=== PATIENT | male | born 2000 | race Caucasian/White ===

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

== ENCOUNTER 2018-08-06 13:10 | Emergency (ER) | payer BC ==
[~2018-08-06] VITALS: Ht 170.2 cm; Wt 78.2 kg
[2018-08-06 13:14] VITALS: BP 124/65; PULSE 109; RESP 20; Ht 170.2 cm; Wt 78.2 kg
--- NOTE | 2018-08-06 13:30 | ERD ---
ER Documentation Chief Complaint Chief Complaint c/o cough and on and off fever x2 weeks HPI 18-year-old male, presents to the emergency department, complaining of intermittent episodes of dry cough for 2 weeks. The patient denies fevers, no chills, no shortness of breath, no chest pain. ROS All systems reviewed and are negative except as per history of present illness. Allergies Allergies: Coded Allergies: erythromycin base (Verified Allergy, Unknown, 08/06/18) sulfisoxazole (Verified Allergy, Unknown, 08/06/18) PMhx/Soc Medical and Surgical Hx: pt denies Medical Hx, pt denies Surgical Hx Hx Alcohol Use: No Hx Substance Use: No Hx Tobacco Use: No FmHx Family History: No diabetes, No coronary disease Physical Exam Vitals Vital Signs Date Temp Pulse Resp B/P (MAP) Pulse Ox O2 O2 Flow FiO2 Time Delivery Rate 08/06/18 102 20 99 21 14:34 08/06/18 98.8 109 20 124/65 99 13:14 (84) Physical Exam Const: No acute distress Head: Atraumatic Eyes: Normal Conjunctiva ENT: Normal External Ears, Nose and Mouth. Neck: Full range of motion. No meningismus. Resp: Clear to auscultation bilaterally Cardio: Regular rate and rhythm, no murmurs Abd: Soft, non tender, non distended. Normal bowel sounds Skin: No petechiae or rashes Back: No midline or flank tenderness Ext: No cyanosis, or edema Neur: Awake and alert Psych: Normal Mood and Affect Results 24 hrs Current Medications Medications Dose Sig/Chuy Start Time Status Last (Trade) Ordered Route PRN Stop Time Admin Dose Reason Admin Albuterol 5 mg ONCE STAT 08/06/18 DC 08/06/18 (Proventil HHN 13:34 08/06/18 14:29 0.083% (Neb)) 13:48 Ipratropium 0.5 mg ONCE ONCE 08/06/18 DC 08/06/18 [place] [facility] 14:00 08/06/18 14:29 (Atrovent 14:01 0.02% (Neb)) Patient: JOSHUA SANTAMARIA : 2000 Age: 18 Sex: M MR #: [id number] DOS: 08/06/18 1332 Ordering MD: PANKAJ WILL MD Location: [facility] Room/Bed: PROCEDURE: XR Chest. CLINICAL INDICATION: Cough 3-week TECHNIQUE: AP and Lateral views of the chest were obtained. COMPARISON: None. FINDINGS: Normal lung volumes. Hemidiaphragm sharply defined. The lungs are clear. No signs of focal air space disease, pleural fluid or pneumothorax identified. The cardiomediastinal silhouette is within normal limits. Osseous thorax is intact. The overlying soft tissues are unremarkable. IMPRESSION: Normal PA and lateral views of the chest. Procedures/MDM Differential diagnosis include but not limited to: Respiratory infection bacterial/viral/fungal. Asthma, COPD, pneumonitis, allergies, GERD. Less cardiac related, aspiration pneumonia, malignancy. Physical examination and clinical presentation consistent most likely with post viral cough. During the ED course the patient remained stable, no new complaints. Treatment options and clinical impression discussed with patient who agrees with management. The patient is stable to be treated outpatient and will be discharged home with a Rx for cough medication and loratadine. Some side effects of prescribed medications (headache, rash, nausea, vomiting, diarrhea, interactions with other medications) were reviewed. The patient was informed that the evaluation in the emergency department has been done to rule out an acute emergency, therefore, chronic conditions like malignancy or other diseases have not been evaluated; therefore, the patient was instructed to follow up with the primary care provider in the next 48h. If symptoms persist, worsen or new symptoms develop, then patient should return to the ED immediately. Disclaimer: Inadvertent spelling and grammatical errors are likely due to EHR/dictation software use and do not reflect on the overall quality of patient care. Also, please note that the electronic time recorded on this note does not necessarily reflect the actual time of the patient encounter. Departure Diagnosis: Primary Impression: Post-viral cough syndrome Condition: Stable Additional Instructions: Thank you very much for allowing us to participate in your care. Your health and safety is our top priority at [facility]. Call your primary care doctor TOMORROW for an appointment during the next 2-4 days and bring all the information and medications prescribed. Have prescriptions filled and follow precisely the directions on the label. If the symptoms get worse and your provider is unavailable, return to the Emergency Department immediately. PANKAJ WILL MD Aug 06, 2018 13:30
[2018-08-06] MEDS ORDERED: ALBUTEROL 0.083% (NEB) 2.5 MG/3 ML AMP HHN STA (13:34)
[2018-08-06] MEDS ORDERED: IPRATROPIUM (NEB) 0.5 MG/2.5 ML AMP HHN ONE (14:00)
[2018-08-06] MEDS ORDERED: BEN50 PO ×2 (15:05)
[2018-08-06] MEDS ORDERED: PRED20TA PO (15:05)
[2018-08-06] MEDS ORDERED: ALBU8.5H8 INH (15:05)
== END 2018-08-06 15:21 | disposition home or self-care (01) ==
LOC: FTE 13:10
DX: G93.3 Postviral and related fatigue syndromes (principal)
CPT/HCPCS: 71046; 94664; Z7502; Z7610